=== PATIENT | female | born 1990 | race Caucasian/White ===

== ENCOUNTER 2017-01-16 16:50 | Observation (INO) | payer BC ==
[~2017-01-16] VITALS: Ht 149.9 cm; Wt 78.0 kg
[2017-01-16 17:34] LABS: BASOPHILS % (AUTO) 0.4 % (0.0-2.0); EOSINOPHILS % (AUTO) 0.5 % (0.0-4.0); HEMATOCRIT 32.6 % (36-48); HEMOGLOBIN 10.6 g/dL (12.0-16.0); LYMPHOCYTES # (AUTO) 1.7 K/uL (1.0-5.5); LYMPHOCYTES % (AUTO) 17.9 % (20.5-51.5); MEAN CORPUSCULAR HEMOGLOBIN 30 pg (27-31); MEAN CORPUSCULAR HGB CONC 33 % (32-36); MEAN CORPUSCULAR VOLUME 93 fL (79.0-98.0); MONOCYTES # (AUTO) 0.5 K/uL (0.0-1.0); MONOCYTES % (AUTO) 5.4 % (1.7-9.3); NEUTROPHILS # (AUTO) 7.4 K/uL (1.8-7.7); NEUTROPHILS % (AUTO) 75.8 % (40.0-70.0); PLATELET COUNT (AUTO) 355 K/uL (130-430); RED BLOOD CELL COUNT(AUTO) 3.51 MIL/uL (4.2-6.2); RED CELL DISTRIBUTION WIDTH 12.5 % (9.0-15.0); WHITE BLOOD COUNT (AUTO) 9.6 K/uL (4.8-10.8)
[2017-01-16 17:45] LABS: BILIRUBIN,URINE 1+ (NEGATIVE); BLOOD, URINE 1+ (NEGATIVE); CLARITY/URINE CLOUDY (CLEAR); COLOR,URINE YELLOW (YELLOW); GLUCOSE,URINE NEGATIVE (NEGATIVE); KETONES,URINE TRACE (NEGATIVE); LEUKOCYTE ESTERASE ,URINE 2+ (NEGATIVE); NITRITE, URINE NEGATIVE (NEGATIVE); PROTEIN URINE 1+ (NEGATIVE)
[2017-01-16 17:46] LABS: CALCIUM 8.7 mg/dL (8.4-11.0); CREATININE 0.48 mg/dL (0.55-1.30); POTASSIUM 3.8 mmol/L (3.5-5.1)
[2017-01-16 17:51] LABS: ALBUMIN 2.6 g/dL (3.4-4.8); TOTAL BILIRUBIN 0.3 mg/dL (0.0-1.0)
[2017-01-16 17:55] LABS: BACTERIA,URINE MODERATE /HPF (None Seen); MUCUS,URINE 2+ /LPF (None Seen); WBC,URINE 20-50 /HPF (0-3)
== END 2017-01-16 20:00 | disposition home or self-care (01) ==
LOC: SPU 16:50
PROVIDERS: ADMIT Obstetrics & Gynecology; ATTEND Obstetrics & Gynecology
DX: O26.893 Other specified pregnancy related conditions, third trimester (principal); R10.30 Lower abdominal pain, unspecified; Z3A.37 37 weeks gestation of pregnancy
CPT/HCPCS: 36415; 59025; 76805; 80053; 81000; 81002; 85025; 87086; G0378

== ENCOUNTER 2017-01-18 23:00 | Inpatient (IN) | payer BC ==
[~2017-01-18] VITALS: Ht 149.9 cm; Wt 78.0 kg
[2017-01-19] MEDS ORDERED: NALBUPHINE HCL 10 MG/ML AMP IM PRN (00:30)
[2017-01-19] MEDS ORDERED: LR 1,000 ML IV ONE (00:30)
[2017-01-19] MEDS ORDERED: OXYTOCIN/NORMAL SALINE 1,000 ML IV SCH (00:30)
[2017-01-19] MEDS ORDERED: NALBUPHINE HCL 10 MG/ML AMP IVP PRN (00:30)
[2017-01-19 00:56] LABS: BASOPHILS % (AUTO) 0.3 % (0.0-2.0); EOSINOPHILS # (AUTO) 0.1 K/uL (0.0-0.4); EOSINOPHILS % (AUTO) 0.6 % (0.0-4.0); HEMOGLOBIN 10.4 g/dL (12.0-16.0); LYMPHOCYTES # (AUTO) 2.1 K/uL (1.0-5.5); MEAN CORPUSCULAR HEMOGLOBIN 30 pg (27-31); MEAN CORPUSCULAR HGB CONC 33 % (32-36); MEAN CORPUSCULAR VOLUME 93 fL (79.0-98.0); MONOCYTES # (AUTO) 0.6 K/uL (0.0-1.0); MONOCYTES % (AUTO) 6.6 % (1.7-9.3); NEUTROPHILS % (AUTO) 71.5 % (40.0-70.0); PLATELET COUNT (AUTO) 327 K/uL (130-430); RED BLOOD CELL COUNT(AUTO) 3.44 MIL/uL (4.2-6.2); RED CELL DISTRIBUTION WIDTH 12.5 % (9.0-15.0); WHITE BLOOD COUNT (AUTO) 9.8 K/uL (4.8-10.8)
[2017-01-19 06:30] VITALS: BP_SYST 124
[2017-01-19] MEDS ORDERED: ONDANSETRON HCL 4 MG/2 ML VIAL IVP ONE (13:00)
[2017-01-19] MEDS ORDERED: OXYTOCIN 10 UNIT/ML VIAL IV ONE (13:00)
[2017-01-19] MEDS ORDERED: MORPHINE SULFATE 10MG/10ML PF AMP EP ONE (13:00)
[2017-01-19] MEDS ORDERED: LR 1,000 ML IV.SOLN IV ONE (13:00)
[2017-01-19] MEDS ORDERED: fentaNYL CITRATE/PF 100 MCG/2 ML AMP IVP ONE (13:00)
[2017-01-19] MEDS ORDERED: CEFAZOLIN 2 GM IVPB PREMIX 50 ML IV ONE (13:00)
[2017-01-19] MEDS ORDERED: NS IRRIG SOLN 1000 ML IR ONE (13:00)
[2017-01-19] MEDS ORDERED: LIDOCAINE 2%, 20 ML MDV INJ ONE (13:00)
[2017-01-20] MEDS: LR 1,000 ML IV SCH ×2 (01:20→09:27)
[2017-01-20] MEDS ORDERED: FENT2mCg/mL-ROPIVA0.2%/NS EPID 150 ML EP ONE (11:10)
[2017-01-20] MEDS ORDERED: fentaNYL CITRATE/PF 100 MCG/2 ML AMP ONE (11:10)
[2017-01-20] MEDS ORDERED: LR 500 ML IV ONE (12:03)
[2017-01-20] MEDS ORDERED: fentaNYL CITRATE/PF 100 MCG/2 ML AMP EP ONE (12:15)
[2017-01-20] MEDS ORDERED: ePHEDrine sulfate 50 MG/ML VIAL IVP PRN (12:15)
[2017-01-20] MEDS ORDERED: FENT2mCg/mL-ROPIVA0.2%/NS EPID 150 ML EP SCH (12:15)
[2017-01-20] MEDS ORDERED: LR 1,000 ML IV SCH (12:54)
[2017-01-20] MEDS ORDERED: NALOXONE HCL 1 MG in NACL 0.9% 1,000 ML IV PRN ×4 (12:54)
[2017-01-20] MEDS ORDERED: HYDROmorphone 1 MG INJ. 1 MG/ML AMPUL IVP PRN (13:00)
[2017-01-20] MEDS ORDERED: HYDROmorphone 2 MG/ML VIAL IVP PRN ×2 (13:00)
[2017-01-20] MEDS ORDERED: DIPHENHYDRAMINE INJ 50 MG/ML VIAL IVP PRN (13:00)
[2017-01-20] MEDS ORDERED: DIPHENHYDRAMINE HCL 50 MG CAPSULE PO PRN (13:00)
[2017-01-20] MEDS ORDERED: ONDANSETRON HCL 4 MG/2 ML VIAL IVP PRN (13:00)
[2017-01-20] MEDS ORDERED: KETOROLAC TROMETHAMINE 60 MG/2 ML VIAL IM PRN (13:00)
[2017-01-20] MEDS ORDERED: NALOXONE HCL 0.4 MG/ML AMP (NARCAN) IVP PRN ×3 (13:00)
[2017-01-20] MEDS ORDERED: MEPERIDINE HCL/PF 25 MG/ML DISP.SYRIN IVP PRN ×2 (13:00)
[2017-01-20] MEDS ORDERED: OXYTOCIN/NORMAL SALINE 1,000 ML IV ONE ×2 (14:29→14:39)
[2017-01-20] MEDS ORDERED: SENNOSIDES/DOCUSATE SODIUM 1 TAB TABLET(SENOKOT-S) PO PRN (14:30)
[2017-01-20] MEDS ORDERED: ANUSOL 1 EA SUPP.RECT (PREPARATION H) RC PRN (14:30)
[2017-01-20] MEDS ORDERED: MEASLES,MUMPS&RUBELLA VACC/PF 12500 UNIT/0.5 ML VIAL SUBQ PRN (14:30)
[2017-01-20] MEDS ORDERED: DOCUSATE SODIUM 100 MG CAPSULE PO PRN (14:30)
[2017-01-20] MEDS ORDERED: RHO(D) IMMUNE GLOBULIN/MALTOSE 1500 UNITS/1.3 ML (WINHRO) IM PRN (14:30)
[2017-01-20] MEDS ORDERED: OXYCODONE/ACETAMINOPHEN 5-325 TABLET PO PRN ×2 (14:30)
[2017-01-20] MEDS ORDERED: BISACODYL 10 MG/SUPPOSITORY RC PRN (14:30)
[2017-01-20] MEDS ORDERED: SIMETHICONE 80 MG TAB.CHEW PO PRN (14:30)
[2017-01-20] MEDS ORDERED: LANOLIN 7 GM OINT. TP PRN (14:30)
[2017-01-20 14:34] VITALS: BP_SYST 119
[2017-01-21 05:33] LABS: HEMATOCRIT 25.2 % (36-48); HEMOGLOBIN 8.3 g/dL (12.0-16.0)
[2017-01-21] MEDS: IBUPROFEN 800 MG TABLET PO PRN ×3 (08:37→19:46)
[2017-01-22] MEDS: IBUPROFEN 800 MG TABLET PO PRN ×4 (06:26→23:49)
[2017-01-22] MEDS ORDERED: ROPIVACAINE 40 MG/20 ML AMP EP ONE (16:26)
[2017-01-23] MEDS: IBUPROFEN 800 MG TABLET PO PRN ×2 (06:18→12:06)
== END 2017-01-23 12:40 | disposition home or self-care (01) | DRG 766 ==
LOC: SPU 23:00 → OBSVTOIN 01-19 00:10 → SPU 01-20 14:27
PROVIDERS: ADMIT Obstetrics & Gynecology; ATTEND Obstetrics & Gynecology
PROC: 10D00Z1 Extraction of Products of Conception, Low, Open Approach (ICD-10-PCS; principal; 2017-01-20 13:45)
DX: O24.429 Gestational diabetes mellitus in childbirth, unspecified control (principal); O42.90 Premature rupture of membranes, unspecified as to length of time between rupture and onset of labor, unspecified weeks of gestation; O62.2 Other uterine inertia; O99.02 Anemia complicating childbirth; Z91.19 Patient's noncompliance with other medical treatment and regimen; Z3A.37 37 weeks gestation of pregnancy; Z37.0 Single live birth
CPT/HCPCS: 36415; 81002-TC; 82962; 85018-TC; 85025; 86592; 86886; 86900; 86901; 94760; G0378; J0690; J2001; J2274; J2300; J2405; J2590; J2795; J3010; J7120